=== PATIENT | male | born 1960 | race Caucasian/White ===

== ENCOUNTER → 2024-11-24 08:53 | Outpatient (REF) | payer OTHER, SELFPAY | LOC: MRI 3T 08:53 | PROVIDERS: ATTENDING PHYSICIAN Internal Medicine Gastroenterology; FAMILY PHYSICIAN Internal Medicine | DX: K50.10 Crohn's disease of large intestine without complications (principal) | CPT/HCPCS: 72197; 74183; A9585 ==

== ENCOUNTER 2025-04-19 06:17 | Day surgery (SDC) | payer OTHER, SELFPAY | END 2025-04-19 15:05 | disposition home or self-care (01) | LOC: GI 06:17 | PROVIDERS: ATTENDING PHYSICIAN Internal Medicine Gastroenterology | DX: Z12.11 Encounter for screening for malignant neoplasm of colon (principal); K64.9 Unspecified hemorrhoids; K63.89 Other specified diseases of intestine; K51.40 Inflammatory polyps of colon without complications; K50.10 Crohn's disease of large intestine without complications; K57.30 Diverticulosis of large intestine without perforation or abscess without bleeding; K50.00 Crohn's disease of small intestine without complications; K63.5 Polyp of colon; K62.1 Rectal polyp | CPT/HCPCS: 45380; 88305 ==

== ENCOUNTER 2025-04-19 23:49 | Inpatient (IN) | payer OTHER, SELFPAY ==
[2025-04-19 20:01] VITALS: BP 136/72
[2025-04-19 20:51] VITALS: BP 166/68
[2025-04-19 20:52] VITALS: BMI 28.8
[2025-04-19 21:12] VITALS: BP 154/75
[2025-04-19 21:31] LABS: Hematocrit 45.0 % (39.0-52.0); Hemoglobin 15.9 g/dL (13.0-18.0); Mean Corp Hgb Conc. 35.3 g/dL (33.0-37.0); Mean Corpuscular Volume 91.1 fL (80.0-94.0); Nucleated Red Blood Cells % 0 % (-); Platelet Count 157 10^3/uL (130-400); Red Cell Dist. Width 12.6 % (11.5-14.5)
--- NOTE | 2025-04-19 21:36 | ED.GENMED ---
History of Present Illness
General
Chief Complaint: Fever
Source: patient
Exam Limitations: none
Time Seen by Provider: 04/19/25 20:44
Nursing documentation reviewed up to this point in time: agreed with
History of Present Illness
History of Present Illness:
Patient to ED wt report of fever, weakness. He had a colonoscopy today. States in 2022 he had a colonoscopy and the same thing occurred. He was admitted for aspiration pneumonia. States he felt well after colonoscopy but then fever started
tonight. Denies any cp/pressure, sob, cough. Denies any abdominal pain. Had diarrhea at home [employer]. To ED accompanied by family
Past History
Past History
ED Past Medical History: HTN and Other (inflammatory bowel disease (crohns), anal ulcer, PNA, Ulcerative colitis, )
ED Past Surgical History: Urological (vasectomy) and Other (Left ear surgery)
Social History
Tobacco: Non-smoker
Alcohol: None
Drug: None
Personal:
Living: with family
Employment: Employed
Family History
Family History: Other (Noncontributory)
Review of Systems
Review of Systems
Allergies reviewed?: Yes
All Other Systems: ROS reviewed and negative except as documented in HPI and ROS
Constitutional: Reports fever, fatigue and chills
EENT: Reports no symptoms
Respiratory: Reports no symptoms
Cardiac: Reports no symptoms
ABD/GI: Reports nausea and diarrhea (1 episode [employer])
: Reports no symptoms
Musculoskeletal: Reports no symptoms
Skin: Reports no symptoms
Neurological: Reports weakness
Psychiatric: Reports no symptoms
Phy Exam
General Physical Exam
General Presentation: moderate distress
General age: appears stated age
General Skin: warm and dry
General Habitus: normal
General Mental: alert
Cardiovascular Exam
Cardiovascular Exam: tachycardia
Pulmonary Exam
Pulmonary Exam: no respiratory distress, chest non tender and other (decreased BS LLL)
Gastrointestinal Exam
Gastrointestinal Exam: normal bowel sounds, non tender, soft, no organomegaly, no pulsatile mass, non distended and no cva tenderness
Musculoskeletal Exam
Musculoskeletal Exam: full ROM and neuro vasc intact
Skin Exam
Skin Exam: normal color, warm/dry and no rash
Psychiatric Exam
Psychiatric Exam: normal mood/affect
Sepsis
Sepsis Screening
Sepsis Assessment: Sepsis
Sepsis Screen
Sepsis Screen: Sepsis
Date: 04/20/25
Time: 00:16
Course
Orders/Labs/Results
Orders:
Orders
04/19/25 20:44
Electrocardiogram (*1) Urgent
Reason for Study: Other
Other Reason for Exam: Possible Sepsis
04/19/25 20:45
EKG- Treatment ONCE
04/19/25 21:22
Complete Blood Count/With Diff Urgent
Comprehensive Metabolic Panel Urgent
Lactic Acid Q4H
Comment: ON ICE, CANCEL 2ND ORDER IF FIRST LACTIC ACID LEVEL <2
Prothrombin Time Urgent
Blood Culture Q20M
CORAL Source: Blood/Venous
Specimen Description:
Comment: Urgent from separate sites. If patient screens positive for possible sepsis
04/19/25 21:34
0.9% Sodium Chloride 1000 ml [Nss] 1,000 ml IV BOLUS
Acetaminophen 1000MG/100Ml [Ofirmev] 1,000 mg in 100 ml IV ONCE
Acetaminophen IV Indication:: No RI & No Enteral Access
04/19/25 21:36
Urinalysis Reflex To Culture Urgent
04/19/25 21:37
CR Chest - 2 Views Urgent
Comment:
Reason For Exam: fever, weakness
04/19/25 21:53
Blood Culture Q20M
CORAL Source: Blood/Venous
Specimen Description:
Comment: Urgent from separate sites. If patient screens positive for possible sepsis
04/19/25 23:07
Ampicillin/Sulbactam 3 G [Unasyn] 3 gm 0.9% Sodium Chloride 100 ml [Nss] 100 ml IV NOW
04/19/25 23:16
Admit/Transfer Patient As Directed
Co-Sign Provider:
Level of Care: Inpatient admission
Assign to:: Medical/Surgical
Physician / Group: Sherrell
Diagnosis: Pneumonia
Reason for Hospitalization: Pneumonia
Expected length of stay greater than two midnights?: Yes
ELOS- Estimated Length of Stay in days: 2
I certify the patient meets the requirements for IP care: Yes
PRN Pain Medication Management As Directed
May give lesser potent ordered pain med per pt: Yes
preference::
Protocol:: Medication orders for pain may be administered in a
manner that supports deferring to patient preference
when the pt is:
- Requesting an ordered lesser potent pain medication.
Least to most potent pain medications are defined
as: acetaminophen < NSAID < tramadol < opioids
(morphine, oxycodone, hydromorphone).
- Requesting a lesser dose of the same medication IF
ORDERED.
- Requesting a less intrusive route of administration
if both routes are prescribed by the provider (PO <
IV).
04/19/25 23:17
Code Status As Directed
Resuscitation Status: Full Code
04/20/25 00:45
Lactic Acid Q4H
Comment: ON ICE, CANCEL 2ND ORDER IF FIRST LACTIC ACID LEVEL <2
Abnormal Lab Results
04/19/25
21:22
WBC 18.0 H 10^3/uL
(4.8-10.8)
MCH 32.2 H pg
(27.0-31.0)
Abs Immat Gran (auto) 0.1 H 10^3/uL
(0-0.05)
Absolute Neuts (auto) 16.3 H 10^3/uL
(1.4-6.5)
Absolute Lymphs (auto) 0.7 L 10^3/uL
(1.2-3.4)
Absolute Monos (auto) 0.9 H 10^3/uL
(0.1-0.6)
Neutrophils % 90.4 H %
(42.2-75.2)
Lymphocytes % 3.6 L %
(20.5-51.1)
PT 14.7 H Sec
(11.4-14.6)
Chloride 111 H mmol/L
(98-107)
Carbon Dioxide 20 L mmol/L
(22-30)
BUN 24 H mg/dl
(9-20)
Glucose 142 H mg/dl
(70-99)
04/19/25 21:22
04/19/25 21:22
Vital Signs
Initial and Last Documented VS:
Initial Vital Signs
Temp Pulse Resp BP Pulse Ox
102.8 F H 125 16 136/72 93
04/19/25 20:01 04/19/25 20:01 04/19/25 20:01 04/19/25 20:01 04/19/25 20:01
Last Documented Vital Signs
Temp Pulse Resp BP Pulse Ox
99.1 F 90 15 127/70 97
04/19/25 23:21 04/20/25 00:00 04/20/25 00:00 04/20/25 00:00 04/19/25 23:45
*Radiology
Radiology exam reviewed: radiology read reviewed
*Pulse Oximetry
SaO2: 93
Nasal Cannula flow liters per minute: 93
Oxygen Mode of Delivery: Room air
Patient hypoxic: no
*Critical Care Note
Total Time (30-74mins, 75-104mins- exclusive of procedures): Not Applicable
Update Note
Update Note:
Paient to ED with complaint of fever/chills, nausea after colonoscopy this AM. States he had a similar event in 2022, diagnosed with aspiration pneumonia. According to report from GI, patient did have an episode pf coughing, hypotension after
procedure. Temp tonight on arrival 102.8. Given IVF, 1G ofirmiv. Labs reviewed tonight. WBC 18, lactc 1.9 Chest xray concerninf to LLE pneumoania. Placed on IV Unisyn and admitted to hospitalist service. Abdomen remains soft, nontender.
Will hold off on CT as abdominal exam remains benign, pneumonia observed on cCXR
ED Attending Note
-
Portions of this chart may have been created with voice recognition software.� Occasional wrong word or��sound alike� substitutions may have occurred due to the inherent limitations of voice recognition software.
Discharge Plan
Departure
Patient Disposition: Admit
Date of Disposition: 04/19/25
Time of Disposition: 22:51
Presentation/result/management discussed w/ accepting MD/DO: Hospitalist
Patient with high blood pressure during this ER visit?: No
Condition: Fair
Covid-19: Not Applicable
Discharge Problem:
Aspiration pneumonia
Interventions
Interventions:
*Risk Screen - Suicide Last Done: 04/19/25 20:01
*General Assessment Last Done: 04/19/25 20:01
*Neglect/Abuse Screening Last Done: 04/19/25 20:01
*ED- Fall Risk Assessment Last Done: 04/19/25 20:01
*ED COVID-19 Vaccine History Last Done: 04/19/25 20:01
ED- Neurological Assessment Last Done: 04/19/25 21:17
ED-Skin Assessment Last Done: 04/19/25 21:17
[2025-04-19 21:41] LABS: INR 1.12; PT 14.7 Sec (11.4-14.6)
[2025-04-19] MEDS: OFIRMEV 100 IV (21:45)
[2025-04-19] MEDS: NSS 1000 IV (21:46)
[2025-04-19 21:47] LABS: AST (SGOT) 24 U/L (17-59); Albumin 4.4 g/dl (3.5-5.0); Alkaline Phosphatase 48 U/L (38-126); Blood Urea Nitrogen 24 mg/dl (9-20); Carbon Dioxide 20 mmol/L (22-30); Chloride 111 mmol/L (98-107); Estimated Creatinine Clearance 87 ml/min; Glucose 142 mg/dl (70-99); Total Protein 7.7 g/dl (6.3-8.2); eGFR > 60.00
[2025-04-19 21:55] LABS: ALT (SGPT) 22 U/L (0-50); Calcium 9.4 mg/dl (8.4-10.2); Potassium 3.9 mmol/L (3.5-5.1); Sodium 139 mmol/L (135-145)
[2025-04-19 22:00] VITALS: BP 143/70
[2025-04-19 22:57] VITALS: BP 137/72
--- NOTE | 2025-04-19 22:58 | HPS.HSE ---
Family Physician
-
Family Physician:
Chief Complaint
-
Fever
History of Present Illness
This is a 65-year-old with past medical history of hypertension, Crohn's colitis, BPH who comes to the emergency department with febrile episode status post colonoscopy.
Patient is status post colonoscopy today. Family reported that the patient started coughing at the end of the procedure. He did continue to cough during the day. Currently denies coughing. He then started having chills and then reported to have
a fever at home. He also vomited once when he attempted to eat status post procedure. He still having some loose stools following the prep. He denies having any symptoms prior to the prep. He reports that during the procedure he was found to
have some inflammation in the colon and did have some polyps removed. He has not had any bloody bowel movements.
Patient reported that he had a similar episode in 2022 when he had a colonoscopy and was admitted for aspiration pneumonia. Patient denies any symptoms prior to his colonoscopy.
Intermittent vitamin D patient was febrile to 102.8, he was normotensive with a blood pressure of 143/70 and satting 94% on room air. There is no increased work of breathing. Chest x-ray shows no acute infiltrates. ECG with sinus tachycardia at a
rate of 109 otherwise nonischemic. He has a white count of 18, CBC otherwise unremarkable. Electrolytes BUN/creatinine were normal. Glucose was normal.
Medical History
Past Medical History
Past Medical History: Reports Other (HTN and Other (inflammatory bowel disease (crohns), anal ulcer), BPH)
Additional Past Medical History:
Right eye AMD
Past Surgical History: Reports Other (Urological (vasectomy) and Other (Left ear surgery))
Additional Past Surgical History:
Left eye cataract surgery
Left eye retinal repair
Social History
Tobacco: Non-smoker
Alcohol: None
Drug: None
Personal:
Living: With Family
Family History
Family History: Not pertinent
Allergies / Home Medications
Allergies reflects when Allergies were last updated in [facility].
Home Medications with original date entered in [facility]
Allergy/Medication List:
Allergies
Allergy/AdvReac Type Severity Reaction Status Date / Time
levofloxacin [From Levaquin] Allergy Itching Verified 05/26/19 14:18
arm redness
shellfish derived Allergy throat Verified 05/26/19 14:18
closing,
facial
swelling
Home Medications
enalapril maleate 10 mg tablet 10 mg PO BID 10/22/22
Tamsulosin 0.4 mg tablet, 0.4 mg p.o. at bedtime
Review of Systems
-
Constitutional: Reports Fever and Chills
EENT: Reports No Symptoms
Respiratory: Reports Cough
Cardiac: Reports No Symptoms
Abdomen/GI: Reports No Symptoms
: Reports No Symptoms
Musculoskeletal: Reports No Symptoms
Skin: Reports No Symptoms
Neurological: Reports No Symptoms
Endocrine: Reports No Symptoms
Hematologic/Lymphatic: Reports No Symptoms
Psych: Reports No Symptoms
Physical Exam
Vital Signs
Vital Signs
Temp Pulse Resp BP Pulse Ox
102.8 F H 96 16 143/70 94
04/19/25 20:01 04/19/25 22:00 04/19/25 22:00 04/19/25 22:00 04/19/25 22:03
Physical Exam
General: Well Developed, Well Nourished and No Apparent Distress
HEENT: NormoCephalic, Moist mucous membranes and Atraumatic
Respiratory: Crackles (Left lower lobe)
Cardiac: S1/S2 and Regular Rhythm; No Murmur or Rub
GI: Soft, Non Tender, Non Distended and Normal Bowel Sounds; No Organomegaly
Rectal: Deferred by Provider
Musculoskeletal: No Clubbing, No Cyanosis and No Edema
Skin: No Rash
Neuro: Nonfocal/grossly intact
Laboratory Results
-
04/19/25 21:22
04/19/25 21:22
Laboratory Results
PT 14.7 Sec (11.4-14.6) H 04/19/25 21:22
INR 1.12 04/19/25 21:22
Lactic Acid 1.9 mmol/L (0.7-2.0) 04/19/25 21:22
Total Bilirubin 1.3 mg/dl (0.2-1.3) 04/19/25 21:22
AST 24 U/L (17-59) 04/19/25 21:22
ALT 22 U/L (0-50) 04/19/25 21:22
Alkaline Phosphatase 48 U/L (38-126) 04/19/25 21:22
Data Reviewed
-
Diagnostic Radiology: Image Personally Visualized and interpreted
Medical Tests (Nuc Med, Echo, EKG etc): Image Personally Visualized and interpreted
Lab Data: Labs Reviewed by me
Old Records: Reviewed
Impression/Plan
-
IMPRESSION:
65-year-old with fever chills leukocytosis, cough and shortness of breath status post colonoscopy where he had coughing immediately after the procedure. Auscultation revealed left lower lobe crackles. Chest x-ray also consistent with linea
consolidation in the left lower lobe. Febrile to 102.5 here. He had a similar presentation 2 years ago status post colonoscopy where was found to have aspiration pneumonia.
PLAN:
Aspiration pneumonia -meet sepsis criteria with fever leukocytosis and tachycardia. Hemodynamically stable. No leukocytosis. Minimal oxygen requirements. No recent hospitalizations but has immunosuppression on Entyvio. No current GI symptoms
and abdominal exam is benign.
- admit to med/surg
- blood cultures sent
- respiratory cultures if coughing
- Continue unasyn given lack of risk for pseuodmonas and MRSA
- check MRSA swab
- oxygen to keep sat > 93
- nebs prn
- diet as tolerated
DVT PPX - lovenox sq
Code status - Full Code
[2025-04-19 23:00] VITALS: BP 136/73
[2025-04-19] MEDS: UNASYN IV (23:18)
[2025-04-20] VITALS (9 sets, daily range): BP systolic 109–139; BP diastolic 64–79
[2025-04-20] MEDS: UNASYN IV ×4 (05:09→23:15)
[2025-04-20 05:26] LABS: Hematocrit 40.6 % (39.0-52.0); Hemoglobin 13.9 g/dL (13.0-18.0); Mean Corp Hgb Conc. 34.2 g/dL (33.0-37.0); Mean Corpuscular Volume 93.8 fL (80.0-94.0); Platelet Count 166 10^3/uL (130-400); Red Cell Dist. Width 12.6 % (11.5-14.5)
[2025-04-20 08:56] LABS: Blood Urea Nitrogen 19 mg/dl (9-20); Calcium 8.3 mg/dl (8.4-10.2); Carbon Dioxide 27 mmol/L (22-30); Chloride 110 mmol/L (98-107); Estimated Creatinine Clearance 87 ml/min; Glucose 107 mg/dl (70-99); Potassium 4.1 mmol/L (3.5-5.1); Sodium 142 mmol/L (135-145); eGFR > 60.00
[2025-04-20] MEDS: VASOTEC 10 MG PO ×2 (09:22→20:22)
--- NOTE | 2025-04-20 09:35 | W.PN.HOSP.TC ---
Today's Communication/Plan
-
see outlined plan below
Assessment / Plan
Assessment / Plan
Assessment:
Sepsis POA (fever, tachycardia, leukocytosis)
Aspiration pneumonia post-sedation for colonoscopy
- CXR: left upper lobe pneumonia
- follow cultures
- continue IV Unasyn, day 1. check MRSA swab
- monitor O2
- prn nebs
- mucolytic therapy, IS,
DVT ppx: Lovenox
Code: Full
Anticipated Discharge: Within 24 hours
Subjective/Interval History
-
Date of Service: April 20, 2025
resting comfortably
denies SOB; now off O2
denies CP
no fevers/chills
tolerating breakfast
Objective Data
-
Labs:
Laboratory Results
04/19/25 04/20/25 04/20/25
21:22 05:17 06:29
WBC 20.2 H
Hgb 13.9
Hct 40.6
Plt Count 166
PT 14.7 H
INR 1.12
Sodium 139 Cancelled Cancelled
Potassium 3.9 Cancelled Cancelled
Chloride 111 H Cancelled Cancelled
Carbon Dioxide 20 L Cancelled Cancelled
BUN 24 H Cancelled Cancelled
Creatinine 0.9 Cancelled Cancelled
Glucose 142 H Cancelled Cancelled
Calcium 9.4 Cancelled Cancelled
Total Bilirubin 1.3
AST 24
ALT 22
Alkaline Phosphatase 48
04/20/25
07:49
WBC
Hgb
Hct
Plt Count
PT
INR
Sodium 142
Potassium 4.1
Chloride 110 H
Carbon Dioxide 27
BUN 19
Creatinine 0.9
Glucose 107 H
Calcium 8.3 L
Total Bilirubin
AST
ALT
Alkaline Phosphatase
Vital Signs:
Vital Signs
Temp Pulse Resp BP Pulse Ox
99.0 F 61 19 121/64 96
04/20/25 00:45 04/20/25 06:00 04/20/25 06:00 04/20/25 06:00 04/20/25 06:00
Physical Exam
-
General: No Apparent Distress
HEENT: Normocephalic and Atraumatic
Respiratory: Rales (JUAN R) and Rhonchi (JUAN R); Negative Wheezes
Cardiac: Regular Rhythm and S1/S2
GI: Soft and Nontender
Genito-urinary: No Costovertebral Tender
Neuro: AO x 3
Hematologic / Lymphatic: No Lymphadenopathy
Psych: Calm
Data Reviewed
-
Total Time Spent with Patient (in minutes): 45
Labs: Labs Reviewed by me
[2025-04-20 09:50] LABS: Urine Character Clear (Clear)
[2025-04-20 10:01] LABS: Urine Squamous Cell 0-2 /LPF (Few); Urine Urothelial Cell 0-2 /LPF (FEW)
[2025-04-20 10:03] LABS: Urine Red Blood Cell 0-2 /HPF (0-2)
[2025-04-20] MEDS: MUCINEX 1200 MG PO ×2 (10:27→20:11)
[2025-04-20 12:09] LABS: Glucose - Point of Care 126 mg/dl (70-99)
--- NOTE | 2025-04-20 14:43 | CM ---
Met with patient and his and daughter at bedside in the ED
Pharmacy: [facility] @ [address] [place] [address]
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
NO SNF or Home Health utilization history
No DME
or Daughter will transport home
Plan: Anticipate discharge to home; no needs
[2025-04-20] MEDS: FLOMAX 0.4 MG PO (20:22)
[2025-04-20] MEDS: FLUSH (NSS) 1 FLUSH IV (23:16)
[2025-04-21] MEDS: UNASYN IV ×2 (05:26→12:03)
[2025-04-21 07:00] VITALS: BP 134/73
[2025-04-21] MEDS: FLOMAX PO (08:43)
[2025-04-21] MEDS: VASOTEC 10 MG PO (09:34)
[2025-04-21] MEDS: MUCINEX 1200 MG PO (09:35)
[2025-04-21 09:59] LABS: Hematocrit 44.8 % (39.0-52.0); Hemoglobin 15.1 g/dL (13.0-18.0); Mean Corp Hgb Conc. 33.7 g/dL (33.0-37.0); Mean Corpuscular Volume 94.5 fL (80.0-94.0); Platelet Count 163 10^3/uL (130-400); Red Cell Dist. Width 12.5 % (11.5-14.5)
[2025-04-21 10:26] LABS: Blood Urea Nitrogen 16 mg/dl (9-20); Calcium 8.8 mg/dl (8.4-10.2); Carbon Dioxide 30 mmol/L (22-30); Chloride 106 mmol/L (98-107); Estimated Creatinine Clearance 98 ml/min; Glucose 149 mg/dl (70-99); Potassium 4.2 mmol/L (3.5-5.1); Sodium 141 mmol/L (135-145); eGFR > 60.00
[2025-04-21 10:55] LABS: Glycohemoglobin (HgbA1c) 5.7 % (4.0-5.6)
--- NOTE | 2025-04-21 11:58 | W.PN.HOSP.TC ---
Today's Communication/Plan
-
dc to home today
Assessment / Plan
Assessment / Plan
Assessment:
Sepsis POA (fever, tachycardia, leukocytosis)
Aspiration pneumonia post-sedation for colonoscopy
- CXR: left upper lobe pneumonia
- follow cultures
- s/p Unasyn x 2 days. dc on Augmentin x 10 days total. MRSA screen negative
- monitor O2 - currently doing well on RA
DVT ppx: Lovenox
Code: Full
More than 30 minutes spent in discharge including
Final examination of the patient
Summarizing hospital stay
Instructions for continuing care to all relevant caregivers
Preparation of discharge records, prescriptions, and referral forms
Total time spent (in minutes): 41
Anticipated Discharge: Today
Subjective/Interval History
-
Date of Service: April 21, 2025
denies any complaints
Objective Data
-
Labs:
Laboratory Results
04/21/25
09:05
WBC 9.8
Hgb 15.1
Hct 44.8
Plt Count 163
Sodium 141
Potassium 4.2
Chloride 106
Carbon Dioxide 30
BUN 16
Creatinine 0.8
Glucose 149 H
Calcium 8.8
Vital Signs:
Vital Signs
Temp Pulse Resp BP Pulse Ox
97.5 F 58 12 134/73 96
04/21/25 07:00 04/21/25 09:34 04/21/25 07:00 04/21/25 09:34 04/21/25 11:23
Physical Exam
-
General: No Apparent Distress
HEENT: Normocephalic and Atraumatic
Respiratory: Negative Wheezes
Cardiac: Regular Rhythm and S1/S2
GI: Soft
Genito-urinary: No Costovertebral Tender
Neuro: AO x 3
Hematologic / Lymphatic: No Lymphadenopathy
Psych: Calm
Data Reviewed
-
Total Time Spent with Patient (in minutes): 42
Labs: Labs Reviewed by me
--- NOTE | 2025-04-21 12:11 | W.DS.TRANS ---
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
-
Discharge Instructions:
Discharge Diagnosis/Procedures aspiration pneumonia
Diet Regular
Activity As tolerated
Instructions:
Stand-Alone Forms:
Changes to Home Medications: No
Discharge Medications:
DC Medications w/original date entered in [id number]
enalapril maleate 10 mg tablet 10 mg PO BID Blood pressure 10/22/22
tamsulosin 0.4 mg capsule 0.4 mg PO HS 04/19/25
amoxicillin 875 mg-potassium clavulanate 125 mg tablet 1 tab PO Q12H #15 tabs 04/21/25
Home Medication Changes
Pending Results: No
Total time spent discharging patient (in min): 41
--- NOTE | 2025-04-21 12:45 | CM ---
CM reviewed chart, patient seen bedside, for discharge today. Patient denies needs upon discharge, confirms will provide transportation home. CM will continue to follow for all discharge planning needs.
Plan; home no needs
== END 2025-04-21 13:49 | disposition home or self-care (01) | DRG 871 ==
LOC: 4 WEST ACU 23:49
PROVIDERS: Nurse Practitioner; ADMITTING PHYSICIAN Internal Medicine; ATTENDING PHYSICIAN Internal Medicine; EMERGENCY PHYSICIAN Emergency Medicine; FAMILY PHYSICIAN Internal Medicine
DX: A41.9 Sepsis, unspecified organism (principal); J18.9 Pneumonia, unspecified organism; J69.0 Pneumonitis due to inhalation of food and vomit; K50.10 Crohn's disease of large intestine without complications; D84.821 Immunodeficiency due to drugs; I10 Essential (primary) hypertension; N40.0 Benign prostatic hyperplasia without lower urinary tract symptoms; Z88.1 Allergy status to other antibiotic agents; Z79.620 Long term (current) use of immunosuppressive biologic
CPT/HCPCS: 71046; 80048; 80053; 81003; 81015; 82962; 83036; 83605; 85025; 85027; 85610; 87040; 87070; 87449; 87899; 93005; 96361; 96365; 96375; 99285

== ENCOUNTER → 2025-07-06 10:52 | Outpatient (REF) | payer OTHER, SELFPAY | LOC: HWRCS 10:52 | PROVIDERS: ATTENDING PHYSICIAN Family Medicine; FAMILY PHYSICIAN Internal Medicine | DX: R94.31 Abnormal electrocardiogram [ECG] [EKG] (principal) | CPT/HCPCS: 93306 ==